=== PATIENT | female | born 1980 | race Caucasian/White ===

== ENCOUNTER 2016-12-24 09:02 | Emergency (ER) | payer OTHER ==
--- NOTE | 2016-12-24 09:29 | ED ---
Back Pain - HPI Summary HPI Summary: Patient arrives to ED with CC of left sided mid to lower back pain which has worsened since this AM after a coughing fit. States she has been experiencing chills and sweats for the past 2 days and endorses tachycardia and diaphoresis currently. Denies urinary symptoms, however previous UTI's have presented as full body aches and tenderness with no urinary symptoms present. No PMHx of kidney stones. She also endorses an acute cough which has been present for 7 days with sputum production described as green. After a coughing fit this am, she feels she may have pulled something in her lower back. Denies bladder or bowel dysfunction. Denies numbness or tingling. - History of Current Complaint Chief Complaint: EDBackInjuryPain Stated Complaint: LOWER BACK PAIN Time Seen by Provider: 12/24/16 09:09 Hx Obtained From: Patient Hx Last Menstrual Period: 08/10/14 Onset/Duration: Sudden Onset - from this AM, but back pain has been present for over 1 week Onset/Duration: Started Hours Ago Timing: Constant Back Pain Location: Is Discrete @ - left L2-L3 radiating to the groin Severity Initially: Moderate Severity Currently: Severe Pain Intensity: 10 Pain Scale Used: 0-10 Numeric Character: Sharp, Aching Aggravating Symptom(s): Movement, Lifting Alleviating Symptom(s): Position Associated Signs And Symptoms: Positive: Negative - Risk Factors AAA Risk Factors: Negative TAD Risk Factors: Negative Cauda Equina Risk Factors: Negative Epidural Abscess Risk Factors: Negative - Allergies/Home Medications Allergies/Adverse Reactions: Allergies Allergy/AdvReac Type Severity Reaction Status Date / Time Aspirin Allergy Severe fluid Verified 12/24/16 09:20 retention Naproxen Allergy Severe Swelling Verified 12/24/16 09:20 NSAIDs Allergy Severe Swelling Verified 12/24/16 09:20 PMH/Surg Hx/FS Hx/Imm Hx Previously Healthy: Yes Endocrine/Hematology History: Denies: Hx Diabetes, Hx Thyroid Disease Cardiovascular History: Denies: Hx Hypercholesterolemia, Hx Hypertension, Hx Pacemaker/ICD, Hx Peripheral Vascular Disease Respiratory History: Denies: Hx Asthma, Hx Chronic Obstructive Pulmonary Disease (COPD) GI History: Denies: Hx Ulcer Musculoskeletal History: Denies: Hx Arthritis, Hx Osteoporosis Sensory History: Denies: Hx Cataracts, Hx Contacts or Glasses, Hx Glaucoma, Hx Hearing Aid Opthamlomology History: Denies: Hx Cataracts, Hx Contacts or Glasses, Hx Glaucoma Neurological History: Reports: Other Neuro Impairments/Disorders - hx bleed 3 wks ago Denies: Hx Headaches, Hx Seizures, Hx Transient Ischemic Attacks (TIA) Psychiatric History: Reports: Hx Anxiety - zoloft, Other Psychiatric Issues/ Disorders - PTSD Denies: Hx Depression, Hx Panic Disorder - Surgical History Surgery Procedure, Year, and Place: c-sections Infectious Disease History: No Infectious Disease History: Denies: Hx Clostridium Difficile, Hx Hepatitis, Hx Human Immunodeficiency Virus (HIV), Hx of Known/Suspected MRSA, Hx Shingles, Hx Tuberculosis, Hx Known/ Suspected VRE, Hx Known/Suspected VRSA, History Other Infectious Disease, Traveled Outside the [place] in Last 30 Days - Social History Occupation: Employed Full-time Lives: With Family Alcohol Use: None Hx Substance Use: No Substance Use Type: Reports: None Hx Tobacco Use: No Smoking Status (MU): Former Smoker Type: Cigarettes Have You Smoked in the Last Year: No Review of Systems Positive: Skin Diaphoresis Eyes: Negative ENT: Negative Cardiovascular: Negative Positive: Cough, Other - with sputum production Gastrointestinal: Negative Positive: no symptoms reported, see HPI Positive: Myalgia - left lower back pain Skin: Negative Neurological: Negative Psychological: Normal All Other Systems Reviewed And Are Negative: Yes Physical Exam Triage Information Reviewed: Yes Vital Signs On Initial Exam: Initial Vitals Temp Pulse Resp BP Pulse Ox 97.2 F 122 16 109/85 97 12/24/16 09:08 12/24/16 09:08 12/24/16 09:08 12/24/16 09:08 12/24/16 09:08 Vital Signs Reviewed: Yes Appearance: Positive: Well-Appearing, Well-Nourished, Pain Distress Skin: Positive: Warm, Skin Color Reflects Adequate Perfusion Head/Face: Positive: Normal Head/Face Inspection Eyes: Positive: Normal, EOMI, Conjunctiva Clear Neck: Positive: Supple, Nontender Respiratory/Lung Sounds: Positive: Breath Sounds Present Cardiovascular: Positive: Normal Musculoskeletal: Positive: Limited @ - twisting and flexion and extension limited d/t pain, Pain @ - left mid to lower back Neurological: Positive: Normal, Sensory/Motor Intact, Speech Normal Psychiatric: Positive: Normal - [place] Coma Scale Coma Scale Total: 15 Diagnostics - Vital Signs Vital Signs Temp Pulse Resp BP Pulse Ox 12/24/16 09:08 97.2 F 122 16 109/85 97 - Laboratory Lab Statement: Any lab studies that have been ordered have been reviewed, and results considered in the medical decision making process. Re-Evaluation - Re-Evaluation First Eval Change: Unchanged - Patient has not improved since pain medicine and flexeril given. Second Eval Change: Improved - Patient improved since 2nd pain medicine given. Back Pain Course/Dx - Course Course Of Treatment: Patient with 7 days of cough and congestion and left sided back pain. Xray shows multifocal PNA, lumbarsacral spine xray showed no acute changes. Will send home with Zithromax, flexeril, short course of pain medicine and fluconazole for history of yeast infections while on abs. However , provider encouraged probiotics on opposite schedule of antbioitcs. Patient agrees with plan and is discharged with note to be taken out of work for 2 days. - Diagnoses Differential Diagnosis/HQI/PQRI: Positive: Strain, Sprain Provider Diagnoses: Pneumonia, Back strain Discharge - Discharge Plan Condition: Stable Disposition: HOME Prescriptions: Azithromycin TAB* [Zithromax TAB (Z-HENRY) 250 mg #6 tabs] 2 tab PO .TODAY, THEN 1 DAILY #1 henry Cyclobenzaprine TAB* [Flexeril TAB*] 10 mg PO BID PRN #10 tab MDD 2 PRN Reason: Pain Cyclobenzaprine TAB* [Flexeril TAB*] 10 mg PO BID PRN #10 tab MDD 2 PRN Reason: Pain Fluconazole 100 MG TAB* [Diflucan 100 MG TAB*] 150 mg PO DAILY #1 tab Ondansetron ODT TAB* [Zofran Odt TAB*] 4 mg PO Q6H PRN #15 tab.odt PRN Reason: Nausea oxyCODONE/Acetamin 5/325 MG* [Percocet 5/325 TAB*] 1 tab PO Q4H PRN #10 tab MDD 6 PRN Reason: Pain oxyCODONE/Acetamin 5/325 MG* [Percocet 5/325 TAB*] 1 tab PO Q4H PRN #10 tab MDD 6 PRN Reason: Pain Patient Education Materials: Pneumonia (ED) Forms: *Work Release Referrals: Luisa Lieberman NP [Primary Care Provider] - Additional Instructions: Follow up with PCP. Take Zithromax until gone. Humidifier in the home. Honey, lemon, hot tea will help break up mucous. Heat packs to the area and rest. Oxycodone for pain. Do not drive on this medication Also, take flexiril for muscle spasms and pain management until resolved.
[2016-12-24] MEDS ORDERED: Cyclobenzaprine TAB* 10 MG PO ONE (09:43)
[2016-12-24] MEDS ORDERED: Acetaminophen TAB* 325 MG PO ONE (09:43)
[2016-12-24 10:35] LABS: Urine Bacteria Absent (Absent); Urine Bilirubin Negative (Negative); Urine Glucose Negative (Negative); Urine Nitrite Negative (Negative)
[2016-12-24] MEDS ORDERED: oxyCODONE/Acetamin 5/325 MG* TAB PO ONE (10:36)
--- NOTE | 2016-12-24 11:02 | RAD ---
INDICATION: Upper respiratory infection symptoms x7 days including chills and fatigue COMPARISON: Most recent comparison chest x-ray is dated May 20, 2012 TECHNIQUE: PA and lateral views of the chest were obtained. FINDINGS: The heart and mediastinum are normal in size and contour. There is multifocal patchy density overlying the bilateral lower lungs. On the right focal density of securing is part of the right heart border and appears to be localized to the right middle lobe on the lateral view. Density at the left lung appears to be located within the left lower lobe. Visualized bones are normal for the patient's age. There is no radiographic evidence of free air beneath the diaphragm IMPRESSION: CHEST X-RAY FINDINGS ARE MOST CONSISTENT WITH MULTIFOCAL PNEUMONIA. FOLLOW-UP CHEST X-RAY AFTER AN APPROPRIATE COURSE OF THERAPY IS RECOMMENDED TO ASCERTAIN RESOLUTION.
[2016-12-24 11:08] VITALS: BP 110/80
--- NOTE | 2016-12-24 11:30 | RAD ---
INDICATION: Low back pain COMPARISON: Similar radiograph dated April 06, 2012 TECHNIQUE: 3 views of the lumbar spine were obtained. FINDINGS: In the AP view there is very slight dextroconvex curvature of the lower thoracic and upper lumbar spine. Otherwise the vertebra are in normal alignment. No fracture is seen. Disc spaces appear maintained. . IMPRESSION: No evidence of acute fracture or subluxation.
== END 2016-12-24 12:42 | disposition home or self-care (01) ==
LOC: ED 09:02
DX: J18.9 Pneumonia, unspecified organism (principal); R61 Generalized hyperhidrosis; S29.012A Strain of muscle and tendon of back wall of thorax, initial encounter; M54.5 Low back pain; Z87.891 Personal history of nicotine dependence
CPT/HCPCS: 71020; 72100; 81003; 81015; 99282; A9270-GY

== ENCOUNTER 2017-03-15 06:15 | Inpatient (IN) | payer OTHER ==
--- NOTE | 2017-02-27 21:14 | HP ---
PREOPERATIVE HISTORY AND PHYSICAL: DATE OF ADMISSION: This patient is scheduled for AA admission by Dr. Mccormick on 03/15/17. DATE OF PREOPERATIVE HISTORY AND PHYSICAL: 02/27/17. ATTENDING SURGEON: Dr. Papo Mccormick (dictated by Sun Leal NP) CHIEF COMPLAINT: Morbid obesity. HISTORY OF PRESENT ILLNESS: The patient is a 36-year-old morbidly obese female , who weighs 253 pounds for body mass index of 39.6. She has obesity-related comorbidities of mild sleep apnea, GERD, and chronic joint pain. She completed medically supervised weight loss at [facility] and has completed all of the necessary preoperative diagnostic testing and evaluations and has been deemed an appropriate candidate by Dr. Mccormick to proceed with laparoscopic sleeve gastrectomy. Dr. Mccormick described the nature of the surgical procedure, the expected results of the surgery, the relevant risks, benefits, and alternatives, and today I reviewed the typical hospitalization and postoperative care and recovery. The patient understands the need for compliance with the stages of the postoperative diet, vitamin and mineral supplementation, exercise, and followup visits. The patient has had a chance to ask questions and stated that she understands the information and is satisfied with the answers given to her questions. She will sign surgical consent on the day of surgery. PAST MEDICAL HISTORY: Mild obstructive sleep apnea, not requiring CPAP at this time; GERD; chronic joint pain. PAST SURGICAL HISTORY: section x3 and D and C many years ago. OB HISTORY: 5, para 3, miscarriage 1, 1. She is up-to-date with pelvic and Pap smear; last menstrual period July 2015 and she has a Mirena. MEDICATIONS: 1. Duloxetine 20 mg p.o. daily in the evening. 2. Alprazolam 0.25 mg p.r.n. anxiety. ALLERGIES: ASPIRIN and ALL NSAIDs cause swelling. FAMILY HISTORY: Father had a myocardial infarction at age 50. Mother has a history of epilepsy. No known anesthesia complications, bleeding tendencies, or clotting disorders in the family. 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 REVIEW OF SYSTEMS: She was in the emergency room in December 2016 at [facility] [employer] with back pain and at that time she was diagnosed with pneumonia and treated. She denies any current constitutional symptoms or any other recent hospitalizations. She denies any chest pain, palpitations. She denies any history of deep vein thrombosis or pulmonary embolism. She denies any dyspnea with exertion or chronic cough. She denies any previous anesthesia complications. Preoperatively, she underwent upper GI series, which was within normal limits. No reflux noted. She also underwent abdominal ultrasound, which revealed a fatty liver, but no cholelithiasis. She denies any bleeding tendencies and has never received a blood transfusion. She denies any genitourinary conditions or complaints. She has chronic joint pain. She denies any neurologic conditions or complaints. PHYSICAL EXAMINATION GENERAL SURVEY: The patient is a morbidly obese, 36-year-old female, in no acute distress. VITAL SIGNS: Height 67 inches, weight 253 pounds, body mass index 39.6. Blood pressure 118/82, pulse 76 and regular, respiratory rate 16, temperature 98.3 tympanic. HEENT: Benign. NECK: Supple. No cervical lymphadenopathy. No thyromegaly. BACK: No CVA tenderness. LUNGS: Breath sounds bilaterally clear and equal. HEART: Regular rate and rhythm. No murmurs or rubs appreciated. ABDOMEN: Obese, active bowel sounds. Soft, nontender throughout. No obvious masses, organomegaly, or evidence of umbilical hernia. Well-healed Pfannenstiel scar. No incisional hernia. PELVIC AND RECTAL: Exams deferred. EXTREMITIES: Warm without skin ulcerations or edema. NEUROLOGIC: Alert and oriented x3. Steady gait. SKIN: Warm, dry, intact. IMPRESSION: Clinically severe obesity. PLAN: AA admission to Dr. Mccormick's service on 03/15/17, for laparoscopic sleeve gastrectomy. SUN LEAL NP CC: Dr. Mccormick, [facility]; Dr. Simon Beltrán* [id number]/[facility] #: [id number] MTDD
[~2017-03-15 06:15] MED LIST: Buffered Lidocaine 1% SYRIN* 3 ML/SYR SYRINGE INTRADERM ONE; Clindamycin 900 MG IVPREMIX(* 900 MG/50 ML SDV IV ONE; ceFAZolin 1 GM in Dextrose (*) 1 GM/50 ML BAG IVPB ONE; ceFAZolin 2 GM PREMIX(*) 2 GM/50 ML BAG IVPB ONE
[2017-03-15 06:59] LABS: Manual Entry Verification ROB0080; UR Preg Internal Control QC Line Present
[2017-03-15] MEDS ORDERED: Bupivacaine 0.25% EPI 200,000* 30 ML SDV ONE (07:06)
[2017-03-15] MEDS ORDERED: Heparin VIAL(*) 5000 UNITS/ML VIAL (FIVE THOUSAND) ONE (07:38)
[2017-03-15] MEDS ORDERED: fentaNYL* 50 MCG/ML 5 ML VIAL (250 MCG VIAL) ONE (07:47)
[2017-03-15] MEDS ORDERED: Midazolam* 1 MG/ML 2 ML VIAL (2 MG) ONE ×2 (07:47→09:13)
[2017-03-15] MEDS ORDERED: Cisatracurium* 2 MG/ML MDV 5 ML ONE (08:09)
[2017-03-15] MEDS ORDERED: Propofol* 10 MG/ML 20 ML BTL IV PUSH ONE ×2 (08:09→10:15)
[2017-03-15] MEDS ORDERED: Succinylcholine* 20 MG/ML 10 ML VIAL ONE (08:09)
[2017-03-15] MEDS ORDERED: Lidocaine 2% PF * 5 ML VIAL ONE (08:09)
[2017-03-15] MEDS ORDERED: Dexamethasone IV* 4 MG/ML 1 ML (4 MG) ONE ×2 (08:09→10:15)
[2017-03-15] MEDS ORDERED: Ondansetron INJ* 2 MG/ML VIAL ONE (08:09)
[2017-03-15] MEDS ORDERED: HYDROmorphone* 1 MG/ML 1 ML SYR IV PRN (08:39)
[2017-03-15] MEDS ORDERED: Scopolamine 1.5 mg* PATCH TRANSDERM PRN (08:39)
[2017-03-15] MEDS ORDERED: Phenylephrine IV* 40 MCG/ML 10 ML SYRINGE ONE (08:45)
--- NOTE | 2017-03-15 09:04 | SURGPN ---
Brief Operative Note - Surgery Procedures: Procedures Pre-OP Diagnoses: Clinically severe obesity Post-op Diagnosis: same Procedure: Laparoscopic sleeve gastrectomy Surgeon: Jace Asst: Rey Anethesia: WILFRID Estrella EBL: minimal IVF: 1000cc LR Specimen: portion of stomach Drains: none
[2017-03-15] MEDS ORDERED: diPHENhydraMINE IV* 50 MG/ML 1 ml VIAL (BENADRYL) SLOW PUSH PRN (09:08)
[2017-03-15] MEDS ORDERED: Ketorolac INJ* 30 MG/ML 1 ML VIAL IV PRN (09:08)
[2017-03-15] MEDS ORDERED: Acetaminophen ADULT LIQ* 650 MG/20.3 ML UDC PO PRN (09:08)
[2017-03-15] MEDS ORDERED: Metoclopramide IV* 5 MG/ML 2 ML VIAL ONE (10:02)
[2017-03-15] MEDS ORDERED: Scopolamine 1.5 mg* PATCH ONE (10:02)
[2017-03-15] MEDS: Metoclopramide IV* 5 MG/ML 2 ML VIAL IV PRN ×2 (10:03→10:11)
[2017-03-15] MEDS ORDERED: fentaNYL* 50 MCG/ML 2 ML VIAL (100 MCG VIAL) ONE (10:03)
[2017-03-15] MEDS: fentaNYL* 50 MCG/ML 2 ML VIAL (100 MCG VIAL) IV PRN ×4 (10:17→10:53)
[2017-03-15] MEDS ORDERED: HYDROmorphone* 1 MG/ML 1 ML SYR ONE (10:54)
--- NOTE | 2017-03-15 11:29 | OP ---
DATE OF OPERATION: 03/15/17 - ROOM #350 DATE OF : 82 SURGEON: Papo Mccormick MD AIRCRAFT AVION[employer] TECHNICIAN: Dr. Le ANESTHESIOLOGIST: Dr. Estrella ANESTHESIA: General. PRE-OP DIAGNOSES: 1. Clinically severe obesity. 2. Obstructive sleep apnea. 3. Gastroesophageal reflux disease. 4. Joint pain. POST-OP DIAGNOSES: 1. Clinically severe obesity. 2. Obstructive sleep apnea. 3. Gastroesophageal reflux disease. 4. Joint pain. OPERATIVE PROCEDURE: Laparoscopic sleeve gastrectomy. BLOOD LOSS: Minimal. FLUIDS: 1000 cc of crystalloid fluid given. SPECIMEN: Portion of stomach. DRAINS: None. COUNTS: Lap pad count and instrument count correct at the end of the procedure. DESCRIPTION OF PROCEDURE: The patient was identified in the preoperative area, marked and case discussed with her and her family, going over the risks, benefits and alternatives of the sleeve gastrectomy and the patient signed consent for the planned procedure. The patient was taken to the operating room , placed on the operating table in supine position. Preoperative antibiotics were given. Sequential devices were placed on bilateral lower extremities. General anesthesia was induced. The patient's abdomen was prepped and draped in standard surgical fashion. A time-out was performed. Folds of the umbilicus were elevated anteriorly and a Veress needle was inserted into the abdominal cavity, which was then allowed to insufflate to a pressure of 15 mmHg. The patient tolerated the insufflation well. Pendroy between the xiphoid and umbilicus just left of midline, a 12-mm trocar was inserted. Laparoscope was inserted through this. There was no evidence of injury from the trocar insertion or from Veress needle. The Veress needle was then removed and additional trocars were then placed in the following positions ; a 5 mm and a 5 mm in the left upper quadrant and a 12 mm in the right upper quadrant. The table was placed in a reverse Trendelenburg. A Woody retractor was inserted through the subxiphoid port and the liver was retracted anteriorly into the right, exposing the gastroesophageal fat pad. The stomach was decompressed and the OG tube was then removed. Fat pad was retracted towards the right lower quadrant and blunt dissection was carried out to expose the left crura. Then, a retrogastric window was made along the greater curvature, approximately 6 mm from the pylorus. The vasculature of the greater curvature was then taken with a LigaSure device, brought up to the angle of His. Posterior attachments were similarly taken until the stomach could be completely rotated on its axis. Hemostasis was excellent. Next, a sleeve stomach was created over a 40-Danish bougie, 16-mm purple JACOB stapling device with reinforcement strips were placed, starting at the antrum and along the greater curvature and extending it toward the lesser curvature and creating the sleeve with additional loads of the stapling, staying tight to the bougie and preventing any twisting of the staple line. Before the last stapler was fired, the fat pad was both sharply and bluntly dissected off of the anterior stomach to give better exposure. The stomach was fully transected and the bougie was removed. Hemostasis was excellent. Next, the 12-mm trocar was removed from the right upper quadrant and an Endobag placed. Stomach was placed into this and then removed from the right upper quadrant port site with ease. The Woody retractor was removed. The abdomen was allowed to collapse. Trocars were removed under direct vision and all 5 skin incisions were reapproximated with skin nithin, followed by sterile dressing. The patient tolerated the procedure well and was transferred to the PACU. CC: Dr. Simon Beltrán; [facility]* [id number]/[facility] #: [id number] GIOVANNA
[2017-03-15] MEDS ORDERED: PROCHLORPERAZINE INJ 5 MG/ML 2 ML VIAL ONE (12:05)
[2017-03-15] MEDS: Heparin VIAL(*) 5000 UNITS/ML VIAL (FIVE THOUSAND) SUBCUT SCH ×2 (14:44→22:10)
[2017-03-15] MEDS: HYDROmorphone* 1 MG/ML 1 ML SYR IV PRN ×2 (15:02→21:05)
[2017-03-15] MEDS: Ondansetron INJ* 2 MG/ML VIAL IV PRN (18:50)
[2017-03-15] MEDS ORDERED: Famotidine IV* 10 MG/ML 2 ML (20 mg) ONE (20:59)
[2017-03-16] MEDS: HYDROmorphone* 1 MG/ML 1 ML SYR IV PRN ×2 (01:40→07:43)
[2017-03-16] MEDS: Ondansetron INJ* 2 MG/ML VIAL IV PRN ×3 (01:41→18:28)
[2017-03-16] MEDS: Heparin VIAL(*) 5000 UNITS/ML VIAL (FIVE THOUSAND) SUBCUT SCH ×3 (06:04→21:28)
--- NOTE | 2017-03-16 08:47 | PN ---
Progress Note - Progress Note SOAP: Subjective: [pt seen and examined. Doing well. some upper abdo pain Objective: af vss uo good lungs clear abdo: soft/NT dressing cdi no calf tenderness Assessment: POD1 sleeve gastrectomy Plan: UGI, clears d/c home
[2017-03-16] MEDS: D5W 1/2 NS KCl 20 Meq 1000 ML* 1,000 ML IV SCH ×2 (09:30→17:35)
--- NOTE | 2017-03-16 09:43 | RAD ---
INDICATION: 1 day postop gastric sleeve bariatric surgery. COMPARISON: November 16, 2016 upper GI series. TECHNIQUE: 0.2 minutes fluoroscopy. The patient swallowed Gastrografin under fluoroscopic observation. FINDINGS: Contrast extends through the region of the gastric sleeve without delay. Contrast propagates through the duodenum without delay. No evidence for enteric leak. Laparoscopy port cutaneous nithin noted. IMPRESSION: Unremarkable postoperative appearance following gastric sleeve bariatric surgery. CPT II Codes: 6045F
[2017-03-16] MEDS ORDERED: D5W 1/2 NS KCl 20 Meq 1000 ML* 1,000 ML IV SCH (10:00)
[2017-03-16] MEDS: HYDROcodone/ACET. 7.5/325 LIQ* 15 ML UDC PO PRN ×3 (12:45→23:35)
[2017-03-16] MEDS ORDERED: Metoclopramide IV* 5 MG/ML 2 ML VIAL IV PRN (14:42)
[2017-03-17] MEDS: D5W 1/2 NS KCl 20 Meq 1000 ML* 1,000 ML IV SCH (02:43)
[2017-03-17] MEDS: Heparin VIAL(*) 5000 UNITS/ML VIAL (FIVE THOUSAND) SUBCUT SCH (06:06)
[2017-03-17] MEDS: Ondansetron INJ* 2 MG/ML VIAL IV PRN (06:33)
[2017-03-17] MEDS ORDERED: Famotidine IV* 10 MG/ML 2 ML (20 mg) ONE (10:12)
--- NOTE | 2017-03-17 10:29 | PN ---
Progress Note - Progress Note Note: Surgery Progress: S: POD #2. Much better this a.m. No Nausea at present. Carlos A ruiz. Also seen and examined by Dr. Mccormick. O: Vital Signs - 8 hr 03/17/17 03/17/17 04:24 08:02 Temperature 98.1 F 98.1 F Pulse Rate 79 70 Respiratory 16 16 Rate Blood Pressure 127/68 125/72 (mmHg) O2 Sat by Pulse 98 97 Oximetry Intake and Output Last 24 Hours 03/15/17 03/16/17 03/17/17 03/18/17 06:59 06:59 06:59 06:59 Intake Total 3775 4466 Output Total 2950 6650 Balance 825 -2184 Weight 239 lb Intake: IV Fluids 3617 3564 ANCEF 3GMS 100 CLINDAMYCIN 900MG 50 D5W 1/2 NS 20 meq KCL 1469 LR 3467 1930 ZOFRAN 55 pepcid 110 IVPB 158 102 LR 158 pepcid 102 Oral 0 800 Output: Urine 2950 6650 Other: Estimated Void Large Estimated Blood Loss MIN Comment Examined by Dr. Mccormick A/P: s/p lap sleeve gastrectomy; ok for d/c (on po omeprazole); instructions reviewed; office f/u 03/23/17.
[2017-03-17 12:40] VITALS: BP 125/77
--- NOTE | 2017-03-17 13:03 | DS ---
DISCHARGE SUMMARY: DATE OF ADMISSION: 03/15/17 DATE OF DISCHARGE: 03/17/17 ATTENDING SURGEON: Papo Mccormick MD (DICTATED BY VARGHESE COSTA) HOSPITAL COURSE: Please refer to admission history and physical for admission details. The patient was taken to the operating room on 03/17/17, at which time , she underwent a laparoscopic sleeve gastrectomy with Dr. Mccormick. The surgery was otherwise uneventful. The patient did have some difficulties with nausea and therefore fluid intake in the first 24 hours. As of the morning of discharge, she is tolerating bariatric clear liquids well and was deemed appropriate for discharge. Pain was well controlled with liquid Tylenol and hydrocodone/APAP elixir. PHYSICAL EXAMINATION: As of the morning of discharge, temperature 98.1, blood pressure 125/72, pulse 70, respirations 16, and room air saturation 97%. The patient was examined by Dr. Mccormick, who removed her dressings. Incisions are clean and dry. No evidence of wound infection. IMPRESSION: Status post laparoscopic sleeve gastrectomy, doing well. PLAN: Home today. Dr. Mccormick would like her to continue on omeprazole 20 mg once daily and a prescription was electronically sent to [facility]. She already has a prescription for hydrocodone elixir. She will resume her usual medications per her primary. Followup will be in our office on 03/23/[address] Mccormick. VARGHESE COSTA CC: Luisa Michelle NP, [facility] * [id number]/[facility] #: [id number] [facility] HOSPITALThang
== END 2017-03-17 13:25 | disposition home or self-care (01) | DRG 403 ==
LOC: AA 06:15 → SSU 09:08
PROVIDERS: ADMIT Surgery; ATTEND Surgery
PROC: 0DB64Z3 Excision of Stomach, Percutaneous Endoscopic Approach, Vertical (ICD-10-PCS; principal; 2017-03-15 07:45)
DX: E66.01 Morbid (severe) obesity due to excess calories (principal); G47.33 Obstructive sleep apnea (adult) (pediatric); Z68.39 Body mass index [BMI] 39.0-39.9, adult; K21.9 Gastro-esophageal reflux disease without esophagitis; M25.50 Pain in unspecified joint; Z79.899 Other long term (current) drug therapy; Z88.6 Allergy status to analgesic agent; Z82.49 Family history of ischemic heart disease and other diseases of the circulatory system; Z87.891 Personal history of nicotine dependence
CPT/HCPCS: 74246; 81025; 88307; 94760; A9270-GY; J0330; J0690; J0780; J1100; J1170; J1644; J2250; J2405; J2704; J3010

== ENCOUNTER 2017-04-16 09:27 | Emergency (ER) | payer OTHER ==
[2017-04-16] MEDS: NS 0.9% 1000 ML* 2,000 ML IV ONE (10:02)
[2017-04-16 10:17] LABS: Hematocrit 41 % (35-47); Hemoglobin 13.8 g/dl (12.0-16.0); Mean Corpuscular HGB Conc 34 g/dl (31-36); Mean Corpuscular Hemoglobin 29 pg (27-31); Mean Corpuscular Volume 86 fL (80-97); Mean Platelet Volume 9 um3 (7.4-10.4); Red Blood Count 4.71 10^6/ul (4.0-5.4); Red Cell Distribution Width 14 % (10.5-15); White Blood Count 10.4 10^3/ul (3.5-10.8)
[2017-04-16 10:30] LABS: Albumin 3.9 g/dL (3.2-5.2); BUN/Creatinine Ratio 10.8 (8-20); C Reactive Protein 18.17 mg/L (< 5.00); Calcium 9.4 mg/dL (8.6-10.3); EGFR African American 114.9 (>60); EGFR Non-African American 89.3 (>60); Globulin 2.9 g/dL (2-4); Potassium 3.4 mmol/L (3.5-5.0); Total Bilirubin 0.6 mg/dL (0.2-1.0); Total Protein 6.8 g/dL (6.4-8.9)
[2017-04-16 11:11] LABS: Urine Bilirubin Negative (Negative); Urine Glucose Negative (Negative); Urine Nitrite Negative (Negative)
--- NOTE | 2017-04-16 11:15 | RAD ---
Indication: Abdominal pain. Real-time sonography of the right upper quadrant was performed. The liver is normal in size. There are no focal lesions or intrahepatic duct dilatation noted. The gallbladder demonstrates no gallstones, pericholecystic fluid or wall thickening. The common duct is not well demonstrated. Right kidney measures 14.3 x 6.4 x 5.4 cm with no hydronephrosis. The pancreas head, neck and proximal body demonstrates no mass or pancreatic ductal dilatation. IMPRESSION: No evidence of cholelithiasis or biliary duct dilatation is identified. Common duct is not well demonstrated.
[2017-04-16] MEDS ORDERED: Iohexol 300* (CONTRAST) 10 ML SDV IV ONE (12:20)
--- NOTE | 2017-04-16 13:55 | RAD ---
Indication: Upper abdominal pain. Status post sleeve gastrectomy. Contrast: Administered 128.0 ml of OMNIPAQUE 300 mgi/ml CT of the abdomen and pelvis was performed after oral and IV contrast administration. Some airspace disease is noted in the left lateral lower lobe. No pleural fluid is identified. The heart demonstrates no pericardial effusion. Liver is normal in size. No focal lesions or intrahepatic duct dilatation is noted. The gallbladder demonstrates no calcified gallstones. No pericholecystic fluid or wall thickening is identified. The pancreas demonstrates no mass or pancreatic duct dilatation. The spleen is normal in size. No adrenal lesions are noted. The kidneys demonstrate symmetric nephrograms without focal lesions. No retroperitoneal lymphadenopathy is noted. No dilated loops of bowel are noted. Patient status post sleeve gastrectomy. CT of the pelvis demonstrates no retroperitoneal or pelvic lymphadenopathy. No hernias are noted. The urinary bladder is otherwise unremarkable. IMPRESSION: No abnormal masses or fluid collections are noted. Postoperative changes of the stomach is noted. Airspace disease in left lower lobe laterally is present.
[2017-04-16 13:58] VITALS: BP 113/42
--- NOTE | 2017-05-12 00:27 | CONS ---
CONSULTATION REPORT: DATE OF CONSULT: 04/16/17 - EMERGENCY DEPT HISTORY OF PRESENT ILLNESS: I was contacted by the emergency room to evaluate Daija Wharton on 04/16/17 with complaints of abdominal pain. The patient is known to me having been 1- month status post laparoscopic sleeve gastrectomy. The patient's postoperative course was mostly uneventful with the exception of possible allergic reaction. The patient had been followed through our offices. 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 She had decreased appetite and denied any fevers or chills. Denied any previous similar symptoms. PAST MEDICAL HISTORY: Reviewed. The patient had lost close to 50 pounds in the course of the first month. MEDICATIONS: Medication list reviewed. PHYSICAL EXAM: On physical exam, 5 feet 7 inches, 211 pounds. Afebrile. Vital signs are stable. Alert and oriented x3, in no apparent distress. Head, Eyes, Ears, Nose, and Throat: Normocephalic, atraumatic. Sclerae anicteric. Mucous membranes are moist. Lungs: Clear. Abdomen: Soft, nondistended, mild tenderness on deep palpation without rebound. Well-healed surgical incisions. No hernias or masses noted. Rectal exam not performed. Extremities within normal limits. DIAGNOSTIC STUDIES/LAB DATA: Labs reviewed showed normal chemistry panel with mildly elevated CRP. Normal lipase. The patient underwent an ultrasound of the gallbladder with a concern for gallstones, there were none. IMPRESSION AND PLAN: We talked about the possibility of discharging her from the emergency room at that time with planned followup as an outpatient since her abdominal exam was benign. However, in our discussion, we determined that we would go forward with a CT scan of the abdomen and pelvis, this was performed and these images as well as the reports were reviewed. It showed no free air. No free fluid. The sleeve stomach appeared intact and I discussed this with her. We then decided to discharge her from the emergency room. She was not seen by the emergency room physicians, but they knew of her presence and I discussed with them. We made plans to see Ms. Wharton early the following week in my office and I gave her my cell phone number to contact me if there should be any concerns. [id number]/[facility] #: [id number] GIOVANNA
== END 2017-04-16 14:00 | disposition home or self-care (01) ==
LOC: ED 09:27
DX: R10.9 Unspecified abdominal pain (principal); Z90.3 Acquired absence of stomach [part of]
CPT/HCPCS: 36415; 74177; 76705; 80053; 81003; 82150; 83605; 83690; 85025; 86140; 99282; Q9967

== ENCOUNTER 2018-03-25 12:52 | Observation (INO) | payer OTHER ==
[2018-03-25] MEDS ORDERED: HYDROmorphone INJ* 1 MG/ML CARPUJECT SYRINGE IV ONE ×2 (13:19→14:19)
[2018-03-25] MEDS ORDERED: NS 0.9% 1000 ML* 2,000 ML IV ONE (13:19)
[2018-03-25] MEDS ORDERED: Ondansetron ODT TAB* 4 MG PO ONE ×2 (13:19→15:45)
[2018-03-25 13:47] LABS: ABS Basophils 0.1 10^3/ul (0-0.2); ABS Eosinophils 0 10^3/ul (0-0.6); ABS Lymphocytes 2.5 10^3/ul (1.0-4.8); ABS Monocytes 0.9 10^3/ul (0-0.8); ABS Neutrophils 10.7 10^3/ul (1.5-7.7); ABS Nucleated RBC 0 10^3/ul; Eosinophil % 0.1 % (0-6); Hematocrit 40 % (35-47); Hemoglobin 13.8 g/dl (12.0-16.0); Mean Corpuscular HGB Conc 34 g/dl (31-36); Mean Corpuscular Hemoglobin 31 pg (27-31); Mean Corpuscular Volume 90 fL (80-97); Mean Platelet Volume 7.9 um3 (7.4-10.4); Nucleated Red Blood Cells % 0; Platelet Count 269 10^3/ul (150-450); Red Blood Count 4.46 10^6/ul (4.0-5.4); Red Cell Distribution Width 14 % (10.5-15); White Blood Count 14.1 10^3/ul (3.5-10.8)
--- NOTE | 2018-03-25 13:47 | RAD ---
Indication: Right flank pain. CT of the abdomen and pelvis was performed without oral or IV contrast administration. Coronal and sagittal reconstructed images were obtained. The lung bases demonstrate no pleural fluid, nodules or masses. Heart is of normal size without evidence of pericardial effusion. The liver is normal in size. No focal lesions or intrahepatic duct dilatation is noted. The gallbladder demonstrates no calcified gallstones. No pericholecystic fluid or wall thickening is noted. The spleen is normal in size. The pancreas demonstrates no mass or pancreatic ductal dilatation. The common duct is not dilated. No adrenal lesions are noted. There is right hydronephrosis and hydroureter noted. There is a calculi in the proximal right ureter measuring 4 mm at the level of L4. The possibility of a second calculi in the distal right ureter just above the ureterovesicular junction measuring 1 to 2 mm also be present. The left kidney shows no hydronephrosis. Aorta and inferior vena cava are unremarkable. No dilated loops of bowel are noted. CT of the pelvis demonstrates uterus to be unremarkable. IUD is in place. No adnexal masses are noted. No hernias are noted. IMPRESSION: Right hydronephrosis is noted with calculi in the right ureter measuring 4 mm at the L4 level. There may be an additional distal right ureteral calculi measuring 1 to 2 mm although bowel loops obscure exact delineation of the ureter. The left kidney shows no hydronephrosis.
[2018-03-25] MEDS ORDERED: HYDROmorphone INJ* 2 MG/ML CARPUJECT SYRINGE ONE ×2 (13:52→14:22)
[2018-03-25 14:05] LABS: EGFR Non-African American 73.7 (>60)
[2018-03-25 14:08] LABS: INR 1.17 (0.77-1.02)
[2018-03-25] MEDS ORDERED: Tamsulosin CAP* 0.4 MG PO ONE (15:43)
[2018-03-25 16:01] LABS: Urine Appearance Cloudy; Urine Blood 3+ (Negative); Urine Color Yellow; Urine Ketones 1+ (Negative); Urine Protein 1+(30 mg/dL) (Negative); Urine Specific Gravity 1.013 (1.010-1.030); Urine Urobilinogen Negative (Negative)
[2018-03-25] MEDS ORDERED: HYDROmorphone INJ* 2 MG/ML CARPUJECT SYRINGE IV SLOW PU ONE (18:31)
[2018-03-25] MEDS ORDERED: HYDROmorphone INJ* 2 MG/ML CARPUJECT SYRINGE IV SLOW PU PRN (18:32)
[2018-03-25] MEDS ORDERED: diPHENhydraMINE PO* 50 MG PO ONE (18:33)
[2018-03-25] MEDS ORDERED: ALPRAZolam TAB* 0.25 MG PO PRN (18:33)
[2018-03-25] MEDS ORDERED: Ondansetron ODT TAB* 4 MG SL PRN (18:35)
[2018-03-25] MEDS ORDERED: Ondansetron INJ* 2 MG/ML VIAL IV PRN (18:35)
[2018-03-25] MEDS: NS 0.9% 1000 ML* 1,000 ML IV SCH ×2 (18:49→23:05)
[2018-03-25] MEDS ORDERED: cefTRIAXone(*) 2 GM in NS 0.9% 100 ML* 100 ML IVPB ONE (19:02)
--- NOTE | 2018-03-25 19:05 | ED ---
Santos Santos Stephanie, scribed for Nirmal Cleary MD on 03/25/18 at 1347 . Abdominal Pain/Female - HPI Summary HPI Summary: The pt is a 37 y/o F presenting to the ED with c/o R sided flank pain that began last night. Symptoms include nausea when the pain is severe. The pt denies increased urinary frequency. The pt states she took flexeril at 10:00 today. - History of Current Complaint Chief Complaint: EDFlankPain Stated Complaint: BACK PAIN Time Seen by Provider: 03/25/18 13:19 Hx Obtained From: Patient Hx Last Menstrual Period: 08/10/14 Onset/Duration: Sudden Onset, Lasting Hours - 13, Still Present Timing: Constant Severity Currently: Severe Pain Intensity: 10 Pain Scale Used: 0-10 Numeric Location: Flank - R Radiates: No Aggravating Factor(s): Nothing Alleviating Factor(s): Nothing Associated Signs and Symptoms: Positive: Negative - increased urinary frequency , Nausea Allergies/Adverse Reactions: Allergies Allergy/AdvReac Type Severity Reaction Status Date / Time aspirin Allergy Swelling Verified 03/25/18 12:59 naproxen Allergy Swelling Verified 03/25/18 12:59 NSAIDS (Non-Steroidal Allergy Swelling Verified 03/25/18 12:59 Anti-Inflamma Home Medications: Home Medications ALPRAZolam TAB* [Xanax TAB*] 0.25 mg PO Q6H PRN 03/25/18 [History Confirmed ] Cyclobenzaprine TAB* [Flexeril 10 MG TAB*] 5 mg PO BID PRN 03/25/18 [History Confirmed 03/25/18] Multivitamins/Minerals TAB* [Theragran/minerals TAB*] 1 tab PO DAILY 03/25/18 [ History Confirmed 03/25/18] PMH/Surg Hx/FS Hx/Imm Hx Endocrine/Hematology History: Denies: Hx Anticoagulant Therapy, Hx Diabetes, Hx Thyroid Disease Cardiovascular History: Denies: Hx Hypercholesterolemia, Hx Hypertension, Hx Pacemaker/ICD, Hx Peripheral Vascular Disease Respiratory History: Reports: Hx Sleep Apnea, Other Respiratory Problems/ Disorders - had pneumonia 12/2016 Denies: Hx Asthma, Hx Chronic Obstructive Pulmonary Disease (COPD) GI History: Reports: Hx Irritable Bowel, Other GI Disorders - h/o small bowel enlarged hospital, resolved; bariatric status Denies: Hx Ulcer Musculoskeletal History: Denies: Hx Arthritis, Hx Osteoporosis Sensory History: Denies: Hx Cataracts, Hx Contacts or Glasses, Hx Glaucoma, Hx Hearing Aid Opthamlomology History: Denies: Hx Cataracts, Hx Contacts or Glasses, Hx Glaucoma Neurological History: Reports: Hx Migraine, Other Neuro Impairments/Disorders - hx bleed 3 wks ago Denies: Hx Headaches, Hx Seizures, Hx Transient Ischemic Attacks (TIA) Psychiatric History: Reports: Hx Anxiety - zoloft, Other Psychiatric Issues/ Disorders - PTSD; bariatric status Denies: Hx Depression, Hx Panic Disorder - Surgical History Surgery Procedure, Year, and Place: c-sections ; bariatric surgery 2017 Hx Anesthesia Reactions: No Infectious Disease History: No Infectious Disease History: Denies: Hx Clostridium Difficile, Hx Hepatitis, Hx Human Immunodeficiency Virus (HIV), Hx of Known/Suspected MRSA, Hx Shingles, Hx Tuberculosis, Hx Known/ Suspected VRE, Hx Known/Suspected VRSA, History Other Infectious Disease, Traveled Outside the [place] in Last 30 Days - Family History Known Family History: Negative: Renal Disease - Social History Occupation: Employed Full-time Lives: Alone Alcohol Use: None Hx Substance Use: No Substance Use Type: Reports: None Hx Tobacco Use: Yes - not currently Smoking Status (MU): Former Smoker Type: Cigarettes Have You Smoked in the Last Year: No Review of Systems Negative: Fever Positive: Nausea Positive: flank pain - R side. Negative: frequency - increased Negative: Slurred Speech All Other Systems Reviewed And Are Negative: Yes Physical Exam - Summary Physical Exam Summary: General: well-appearing, moderate/severe pain distress Skin: warm, color reflects adequate perfusion, dry Head: normal Eyes: EOMI, MAR ENT: normal Neck: supple, nontender Respiratory: CTA, breath sounds present Cardiovascular: RRR Abdomen: soft, tender in R flank Bowel: present Musculoskeletal: normal, strength/ROM intact Neurological: sensory/motor intact, A&O x3 Psychological: affect/mood appropriate Triage Information Reviewed: Yes Vital Signs On Initial Exam: Initial Vitals Temp Pulse Resp BP Pulse Ox 98 F 115 22 127/87 100 03/25/18 12:59 03/25/18 12:59 03/25/18 12:59 03/25/18 12:59 03/25/18 12:59 Vital Signs Reviewed: Yes Diagnostics - Vital Signs Vital Signs Temp Pulse Resp BP Pulse Ox 03/25/18 12:59 98 F 115 22 127/87 100 - Laboratory Lab Results: Lab Results 03/25/18 03/25/18 03/25/18 Range/Units 13:40 13:40 13:40 WBC 14.1 H (3.5-10.8) 10^3/ul RBC 4.46 (4.0-5.4) 10^6/ul Hgb 13.8 (12.0-16.0) g/dl Hct 40 (35-47) % MCV 90 (80-97) fL MCH 31 (27-31) pg MCHC 34 (31-36) g/dl RDW 14 (10.5-15) % Plt Count 269 (150-450) 10^3/ul MPV 7.9 (7.4-10.4) um3 Neut % (Auto) 75.3 (38-83) % Lymph % (Auto) 18.0 L (25-47) % Gooding % (Auto) 6.2 (0-7) % Eos % (Auto) 0.1 (0-6) % Baso % (Auto) 0.4 (0-2) % Absolute Neuts (auto) 10.7 H (1.5-7.7) 10^3/ul Absolute Lymphs (auto) 2.5 (1.0-4.8) 10^3/ul Absolute Monos (auto) 0.9 H (0-0.8) 10^3/ul Absolute Eos (auto) 0 (0-0.6) 10^3/ul Absolute Basos (auto) 0.1 (0-0.2) 10^3/ul Absolute Nucleated RBC 0 10^3/ul Nucleated RBC % 0 INR (Anticoag Therapy) 1.17 H (0.77-1.02) APTT 27.9 (26.0-36.3) seconds Sodium 140 (139-145) mmol/L Potassium 3.8 (3.5-5.0) mmol/L Chloride 106 (101-111) mmol/L Carbon Dioxide 26 (22-32) mmol/L Anion Gap 8 (2-11) mmol/L BUN 12 (6-24) mg/dL Creatinine 0.87 (0.51-0.95) mg/dL Est GFR ( Amer) 94.7 (>60) Est GFR (Non-Af Amer) 73.7 (>60) BUN/Creatinine Ratio 13.8 (8-20) Glucose 104 H (70-100) mg/dL Lactic Acid (0.5-2.0) mmol/L Calcium 9.8 (8.6-10.3) mg/dL Total Bilirubin 0.70 (0.2-1.0) mg/dL AST 16 (13-39) U/L ALT 27 (7-52) U/L Alkaline Phosphatase 81 (34-104) U/L C-Reactive Protein < 1.00 (< 5.00) mg/L Total Protein 7.0 (6.4-8.9) g/dL Albumin 4.5 (3.2-5.2) g/dL Globulin 2.5 (2-4) g/dL Albumin/Globulin Ratio 1.8 (1-3) Beta HCG, Quant 0.73 mIU/mL Urine Color Urine Appearance Urine pH (5-9) Ur Specific Newport (1.010-1.030) Urine Protein (Negative) Urine Ketones (Negative) Urine Blood (Negative) Urine Nitrate (Negative) Urine Bilirubin (Negative) Urine Urobilinogen (Negative) Ur Leukocyte Esterase (Negative) Urine WBC (Auto) (Absent) Urine RBC (Auto) (Absent) Ur Squamous Epith Cells (Absent) Urine Bacteria (Absent) Urine Glucose (Negative) 03/25/18 03/25/18 Range/Units 13:40 15:44 WBC (3.5-10.8) 10^3/ul RBC (4.0-5.4) 10^6/ul Hgb (12.0-16.0) g/dl Hct (35-47) % MCV (80-97) fL MCH (27-31) pg MCHC (31-36) g/dl RDW (10.5-15) % Plt Count (150-450) 10^3/ul MPV (7.4-10.4) um3 Neut % (Auto) (38-83) % Lymph % (Auto) (25-47) % Gooding % (Auto) (0-7) % Eos % (Auto) (0-6) % Baso % (Auto) (0-2) % Absolute Neuts (auto) (1.5-7.7) 10^3/ul Absolute Lymphs (auto) (1.0-4.8) 10^3/ul Absolute Monos (auto) (0-0.8) 10^3/ul Absolute Eos (auto) (0-0.6) 10^3/ul Absolute Basos (auto) (0-0.2) 10^3/ul Absolute Nucleated RBC 10^3/ul Nucleated RBC % INR (Anticoag Therapy) (0.77-1.02) APTT (26.0-36.3) seconds Sodium (139-145) mmol/L Potassium (3.5-5.0) mmol/L Chloride (101-111) mmol/L Carbon Dioxide (22-32) mmol/L Anion Gap (2-11) mmol/L BUN (6-24) mg/dL Creatinine (0.51-0.95) mg/dL Est GFR ( Amer) (>60) Est GFR (Non-Af Amer) (>60) BUN/Creatinine Ratio (8-20) Glucose (70-100) mg/dL Lactic Acid 1.6 (0.5-2.0) mmol/L Calcium (8.6-10.3) mg/dL Total Bilirubin (0.2-1.0) mg/dL AST (13-39) U/L ALT (7-52) U/L Alkaline Phosphatase (34-104) U/L C-Reactive Protein (< 5.00) mg/L Total Protein (6.4-8.9) g/dL Albumin (3.2-5.2) g/dL Globulin (2-4) g/dL Albumin/Globulin Ratio (1-3) Beta HCG, Quant mIU/mL Urine Color Yellow Urine Appearance Cloudy Urine pH 6.0 (5-9) Ur Specific Newport 1.013 (1.010-1.030) Urine Protein 1+(30 mg/dl) A (Negative) Urine Ketones 1+ A (Negative) Urine Blood 3+ A (Negative) Urine Nitrate Negative (Negative) Urine Bilirubin Negative (Negative) Urine Urobilinogen Negative (Negative) Ur Leukocyte Esterase Trace A (Negative) Urine WBC (Auto) 1+(6-10/hpf) A (Absent) Urine RBC (Auto) 3+(>10/hpf) A (Absent) Ur Squamous Epith Cells Present A (Absent) Urine Bacteria Absent (Absent) Urine Glucose Negative (Negative) Result Diagrams: 03/25/18 13:40 03/25/18 13:40 Lab Statement: Any lab studies that have been ordered have been reviewed, and results considered in the medical decision making process. - CT Abdomen/Pelvis CT Interpretation: Positive (See Comments) CT Interpretation Completed By: Radiologist - Right hydronephrosis is noted with calculi in the right ureter measuring 4 mm at the L4 level. There may be an additional distal right ureteral calculi measuring 1 to 2 mm although bowel loops obscure exact delineation of the ureter. The left kidney shows no hydronephrosis. ED physician has reviewed this report. Re-Evaluation - Re-Evaluation First Eval Re-Evaluation Time: 15:35 Change: Improved - The pt's pain has improves. After her first dose of dilaudid the pt's pain was an 8 out of 10. Now her pain is a numbing pain. Abdominal Pain Fem Course/Dx - Course Course Of Treatment: DISCUSSED WITH DR MONTGOMERY, UROLOGY. ADMIT HOSPITALIST. - Diagnoses Provider Diagnoses: Kidney stone on right side - Provider Notifications Discussed Care Of Patient With: Lalit Barrientos Time Discussed With Above Provider: 18:38 Instructed by Provider To: Admit As Inpatient Discharge - Sign-Out/Discharge Documenting (check all that apply): Discharge/Admit/Transfer - Discharge Plan Condition: Stable Disposition: [facility]ITTED TO [facility] Referrals: Simon Beltrán MD [Primary Care Provider] - - Billing Disposition and Condition Condition: STABLE Disposition: [facility] The documentation as recorded by the Santos fine Stephanie accurately reflects the service I personally performed and the decisions made by , Nirmal Cleary MD.
[2018-03-25] MEDS ORDERED: Ondansetron ODT TAB* 4 MG ONE (19:11)
[2018-03-25] MEDS ORDERED: Buffered Lidocaine 0.9% SYRIN* 5 ML/SYR SYRINGE INTRADERM ONE (19:58)
--- NOTE | 2018-03-25 20:46 | HP ---
CC: Dr. Beltrán * ADMISSION HISTORY AND PHYSICAL: DATE OF ADMISSION: 03/25/18 PRIMARY CARE PROVIDER: Dr. Beltrán. HEALTHCARE PROXY: Her fiance, Cade Garcia. CODE STATUS: Full. SOURCE OF INFORMATION: History obtained from interview with the patient. RELIABILITY: Good. CHIEF COMPLAINT: Right flank pain. HISTORY OF PRESENT ILLNESS: This is a 37-year-old female, who had been in her usual state of health until the night prior to presentation, started to develop right hip pain that gradually worsened in severity, then moved from her hip down to wrap around to her groin. Later in the morning, it became acutely worse with associated nausea, vomiting in addition to the pain, exacerbated by taking a deep breath. Of note, the pain was in her lower back when she took a deep breath and not in her chest. She has had no chest pain, no diarrhea. The pain has become increasingly worse, so she presented to the emergency room and was noted on a CT abdomen and pelvis to have 4 mm obstructing ureteral stone with associated right hydronephrosis and hydroureter at the proximal right ureter around the level of L4. The patient was treated with multiple doses of Dilaudid with some relief; however, required repeated dosing secondary to repeated pain. She noted pruritus with administration of the Dilaudid, improving nausea with administration of ondansetron. Otherwise, the patient has no fevers, chills, or night sweats. She has noted no dysuria, urinary frequency or urgency. She is quite active, walks regularly, goes to the gym 4 times a week and uses the elliptical for 30 to 45 minutes per session. She has a previous gastric bypass with no problems with bleeding approximately 1 year prior, but did note she had a "reaction" to anesthesia where she had to be reintubated soon after extubation after which she was administrated some medication, which allowed her extubation. Of note, I do not yet see the details surrounding any anesthesia, adverse reaction on 03/15/17 in her operative report. PAST MEDICAL HISTORY: Includes osteoarthritis of her knees, anxiety, gastric bypass in March 2017, 3 times. MEDICATIONS: 1. Xanax 0.25 mg as needed. 2. Multivitamin daily. ALLERGIES: To NSAIDS, which caused swelling. FAMILY HISTORY: Grandmother and great grandfather had nephrolithiasis. Her mother has epilepsy. Father had CAD at the age of 50. SOCIAL HISTORY: Rare alcohol once every several months. Smokes 1 to 2 cigarettes per day for the last 4 to 5 years. She is a [employer] employee. REVIEW OF SYSTEMS: As per HPI. Otherwise, all other systems negative. PHYSICAL EXAMINATION GENERAL: A well-appearing 37-year-old female, rolling in bed in pain, holding her right flank. VITAL SIGNS: 101/61, heart rate 63, respiratory rate is 15, 99% on room air, T- max in the emergency room is 98%. HEENT: Oropharynx is clear. She has moist mucous membranes. Sclerae are anicteric. LUNGS: Clear to auscultation. HEART: She has a regular rate and rhythm without no murmurs, rubs, or gallops. ABDOMEN: Soft, nontender, nondistended. She has minimal tenderness over her spine with some costovertebral angle tenderness to percussion. EXTREMITIES: Warm and well perfused without clubbing, cyanosis, or edema. She has less than 2 seconds cap refill. NEUROLOGIC: Her cranial nerves II through XII are intact. She is alert and oriented x3. She has no apparent anxiety, agitation, or depression. PERTINENT LABORATORY DATA: White blood cell count is 14.1 which is 75% neutrophils, hemoglobin 13.8, platelets 269,000. Urine is notable for protein, ketones, blood, leuk esterase, white blood cells, red blood cells, squamous epithelial cells, and absent bacteria. PERTINENT IMAGING: CT abdomen and pelvis, impression: Right hydronephrosis and hydroureter with calculi in the right ureter measuring 4 mm at the level of L4. There may be an additional distal right ureteral calculi measuring 1 to 2 mm , although bowel loops obscure exact delineation of the ureter. The left kidney shows no hydronephrosis. ASSESSMENT AND PLAN: This is a 37-year-old female with past medical history of gastric bypass 1 year prior to presentation after which her obstructive sleep apnea and gastroesophageal reflux disease have been resolved, now presenting with new- onset nephrolithiasis with associated hydroureter and hydronephrosis, requiring IV pain medication for adequate symptom control. 1. Nephrolithiasis requiring IV Dilaudid. We will prescribe 0.5 mg every 2 hours as needed, 1 dose of Benadryl now. Continue Zofran for management of nausea. 150 cc of normal saline to run continuously and strain urine to evaluate for collection. N.p.o. at 10 p.m. for potential OR with Dr. Alejo at 7 :30 in the morning after discussion with Dr. Cleary, who discussed with Dr. Alejo. The patient received tamsulosin already in the emergency room, will not continue in the morning, she will be n.p.o. 2. Obstructive sleep apnea is cured. No intervention. 3. Anxiety. Continue Xanax p.r.n. 4. DVT prophylaxis, low risk. Ambulate ad micah. [id number]/[facility] #: [id number] [facility]OSPITALThang
[2018-03-25] MEDS: Acetaminophen TAB* 325 MG PO PRN (21:13)
[2018-03-26] MEDS ORDERED: oxyCODONE/Acetamin 5/325 MG* TAB PO PRN (00:29)
[2018-03-26] MEDS: Acetaminophen TAB* 325 MG PO PRN (04:43)
[2018-03-26] MEDS ORDERED: Famotidine IV* 10 MG/ML 2 ML (20 mg) ONE (05:46)
[2018-03-26] MEDS ORDERED: Famotidine IV* 10 MG/ML 2 ML (20 mg) IV ONE (06:00)
[2018-03-26] MEDS ORDERED: PROCHLORPERAZINE INJ 5 MG/ML 2 ML VIAL IV PRN (06:41)
[2018-03-26] MEDS ORDERED: oxyCODONE TAB* 5 MG TAB PO PRN (06:41)
[2018-03-26] MEDS ORDERED: HYDROmorphone INJ* 1 MG/ML CARPUJECT SYRINGE IV PRN (06:41)
[2018-03-26] MEDS ORDERED: Ondansetron INJ* 2 MG/ML VIAL IV PRN (06:41)
[2018-03-26] MEDS ORDERED: Naloxone* 0.4 MG/ML 1 ML VIAL IV PRN (06:41)
[2018-03-26] MEDS ORDERED: Acetaminophen TAB* 325 MG PO PRN (06:41)
[2018-03-26] MEDS ORDERED: Sodium Citrate/Citric Acid* 15 ML UDC ONE (06:51)
[2018-03-26] MEDS ORDERED: Iohexol 180 (CONTRAST) 10 ML SDV IV ONE (06:55)
[2018-03-26] MEDS ORDERED: Gentamicin ADULT (*) 160 MG in NS 0.9% 100 ML* 100 ML IVPB ONE (07:00)
[2018-03-26] MEDS ORDERED: fentaNYL* 50 MCG/ML 2 ML VIAL (100 MCG VIAL) ONE ×2 (07:12→08:24)
[2018-03-26] MEDS ORDERED: Ketorolac INJ* 30 MG/ML 1 ML VIAL ONE (07:18)
[2018-03-26] MEDS: fentaNYL* 50 MCG/ML 2 ML VIAL (100 MCG VIAL) IV PRN ×2 (08:25→08:35)
--- NOTE | 2018-03-26 08:39 | RAD ---
INDICATION: Right ureteral calculus, stent insertion COMPARISONS: CT dated March 25, 2018 TECHNIQUE: Fluoroscopy was provided for a retrograde pyelogram and stent placement. Total fluoroscopy time is: 9 seconds FINDINGS: Spot images Medardo contrast within the renal collecting system which is dilated. A ureteral stent is noted. IMPRESSION: FLUOROSCOPY WAS PROVIDED FOR A RETROGRADE PYELOGRAM AND STENT PLACEMENT CPT II Codes: G9500
[2018-03-26] MEDS ORDERED: Acetaminophen TAB* 325 MG ONE (08:53)
[2018-03-26] MEDS ORDERED: Multivitamins/Minerals TAB PO SCH (09:00)
[2018-03-26 10:09] VITALS: BP 100/67
--- NOTE | 2018-03-26 10:33 | OP ---
CC: Dr. Lalit Barrientos * DATE OF OPERATION: 03/26/18 - ROOM #332 DATE OF : 82 SURGEON: Wilbur Alejo MD ANESTHESIOLOGIST: Dr. Feldman. ANESTHESIA: General. PRE-OP DIAGNOSES: 1. Right hydronephrosis. 2. Calculus right proximal ureter. POST-OP DIAGNOSES: 1. Right hydronephrosis. 2. Calculus right proximal ureter. OPERATIVE PROCEDURE: Cystoscopy, right retrograde pyelogram, right ureteroscopy , right pyeloscopy, fragmentation and extraction of calculus of right proximal ureter and right stent insertion. COMPLICATIONS: None. POSTOPERATIVE CONDITION: Stable. STENT USED: A 6-Georgian stent right ureter. INDICATIONS: Daija Wharton is a 37-year-old lady who has had persistent right flank pain, nausea secondary to obstructing calculus in the right ureter. She was given the option of conservative management but because of the degree and frequency of episodes of pain, she would like to proceed with removal of the calculus. OPERATIVE FINDINGS: Approximately 5 mm sharp-edged calculus impacted at the right ureteropelvic junction with right hydronephrosis. DESCRIPTION OF PROCEDURE: After induction of general anesthesia, patient was placed in dorsal lithotomy position. Sequential compression devices were in place and functioning. 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 There was no evidence of any suspicious bladder lesions noted. Clear efflux was noted from the left orifice. There was initially no efflux noted from the right orifice suggesting a complete obstruction. A 6-Georgian semirigid ureteroscope was introduced in the right ureter. Initial retrograde pyelogram had revealed significantly dilated right proximal collecting system. The ureteroscope was carefully advanced under direct vision. There was no calculus visualized in the distal ureter. The ureteroscope was advanced to the level just below the ureteropelvic junction where there was a 5 to 6 mm sharp-edged calculus with surrounding edema and inflammation. The ureteroscope was carefully advanced above the calculus into the right kidney and pyeloscopy was performed. No additional calculi were noted. Next, using a 3-pronged grasper, the calculus was engaged. The calculus was fragmented and the largest fragment was engaged and retrieved and sent for analysis. The remaining fragments were all less than a millimeter or so in size and the ureteroscope was then withdrawn under direct vision. A 6-Georgian stent was introduced and positioned under fluoroscopy with good proximal and distal positioning obtained. Patient tolerated the procedure satisfactorily and was transferred back to the recovery area in stable condition. [id number]/[facility] #: [id number] GIOVANNA
[2018-03-26] MEDS ORDERED: LR @ 150 MLS/HR IV SCH (11:00)
--- NOTE | 2018-03-26 23:57 | DS ---
CC: Dr. Beltrán * DISCHARGE SUMMARY: DATE OF ADMISSION: DATE OF DISCHARGE: 03/26/18 HISTORY OF PRESENT ILLNESS/HOSPITAL COURSE: This 37-year-old woman presented with right flank pain. She was found to have a right ureteral stone. She was brought to the operating room on 03/26/18 in the morning by Dr. Alejo. A 6- Georgian stent was placed on the right side. Her pain resolved. She did have some right hip pain, which was different than before. I suspect this is due to positioning while under anesthesia in the OR. The patient was discharged on her usual medications and will follow up with Dr. Alejo in a week. FINAL DIAGNOSIS: Right ureteral stone. DISCHARGE MEDICATIONS: 1. Acetaminophen 650 mg every 6 hours p.r.n. 2. Multivitamin with mineral daily. 3. Cyclobenzaprine 5 mg b.i.d. p.r.n. 4. Alprazolam 0.25 mg every 6 hours p.r.n. [id number]/[facility] #: [id number] [facility]ITALTh[facility]
== END 2018-03-26 13:15 | disposition home or self-care (01) ==
LOC: ED 12:52 → SSU 18:42
PROVIDERS: ADMIT Internal Medicine; ATTEND Internal Medicine
PROC: BT1DZZZ Fluoroscopy of Right Kidney, Ureter and Bladder (ICD-10-PCS; principal; 2018-03-25)
PROC: 0TC68ZZ Extirpation of Matter from Right Ureter, Via Natural or Artificial Opening Endoscopic (ICD-10-PCS; 2018-03-25)
PROC: 0T768DZ Dilation of Right Ureter with Intraluminal Device, Via Natural or Artificial Opening Endoscopic (ICD-10-PCS; 2018-03-25)
DX: N13.30 Unspecified hydronephrosis (principal); N20.1 Calculus of ureter; R11.0 Nausea; Z87.891 Personal history of nicotine dependence
CPT/HCPCS: 36415; 74176; 74420; 80053; 81003; 81015; 82365; 83605; 84702; 85025; 85610; 85730; 86140; 87086; 88300; 96361; 96365; 96366; 96375; 99283; A9270-GY; C1876; G0378; J0696; J1170; J1580; J1885; J3010

== ENCOUNTER 2018-08-17 18:38 | Emergency (ER) | payer OTHER ==
[2018-08-17 18:59] VITALS: BP 122/83
--- NOTE | 2018-08-17 19:06 | UC ---
Throat Pain/Nasal Renny HPI - HPI Summary HPI Summary: Pt presents with sore throat x 2 days. Pt denies fevers or chills. Pt states is s/p gastric sleeve 18 months ago. Pt states started having reflux last week. Pt states with sore throat also feels like things"stuck" Pt without difficulty swallowing, but causes discomfort throat. Pt denies difficulty breathing, no chest pain. No fever, chills, rash. No relief with TUMS. no analgesia taken. No strep exposure not immunocompromise. Pt denies abdominal pain. States has been feeling full quickly. Was constipated, but things "moving today" Has appt wit Dr. Mccormick this Tue Pt's medications reviewed this visit - History of Current Complaint Chief Complaint: UCGeneralIllness Stated Complaint: SORE THROAT Time Seen by Provider: 08/17/18 18:57 Hx Obtained From: Patient Hx Last Menstrual Period: 1 year ago - has mirena ?: No Onset/Duration: Gradual Onset Pain Intensity: 3 - Allergies/Home Medications Allergies/Adverse Reactions: Allergies Allergy/AdvReac Type Severity Reaction Status Date / Time aspirin Allergy Swelling Verified 08/17/18 18:59 naproxen Allergy Swelling Verified 08/17/18 18:59 NSAIDS (Non-Steroidal Allergy Swelling Verified 08/17/18 18:59 Anti-Inflamma PMH/Surg Hx/FS Hx/Imm Hx Previously Healthy: Yes Other History Of: Negative For: Anticoagulant Therapy - Surgical History Surgical History: Yes Surgery Procedure, Year, and Place: c-sections x3; bariatric surgery (gastric sleeve) 2017 - Family History Known Family History: Positive: Other - non contributory Negative: Renal Disease - Social History Lives: With Family Alcohol Use: Rare Substance Use Type: None Smoking Status (MU): Current Some Day Smoker Type: Cigarettes Amount Used/How Often: 2-3 cig daily Have You Smoked in the Last Year: No When Did the Patient Quit Smoking/Using Tobacco: at diagnosis Household Exposure Type: Cigarettes - Immunization History Most Recent Influenza Vaccination: 2017 Most Recent Tetanus Shot: 04/13/2015 Most Recent Pneumonia Vaccination: never Review of Systems Constitutional: Negative ENT: Sore Throat All Other Systems Reviewed And Are Negative: Yes Physical Exam - Summary Physical Exam Summary: Vital Signs Reviewed: Yes A+Ox3, no distress, no difficulty with speech, swallowing, secretions Eyes: Conjunctiva Clear, MAR. EOM intact and full ENT: Hearing grossly normal TM x 2 clear, turbinates wnl, mmoist, uvula midline , + erythema, pt with small ulcerative appearing lesions on right > left posterior pharynx. no edema, no asymmetry, no lesions on tongue, hard palate, buccal membrane Neck: Positive: Supple, mild submandibular LA Respiratory: Positive: No respiratory distress, No accessory muscle use + CTA throughout no w/r Cardiovascular: RRR nl s1, s2 no m/r CBT <2 sec abd soft + BS nt/nd no guarding, no distension Musculoskeletal Exam: CARMEN x 4 without difficulty Strength Intact, ROM Intact Neurological: Positive: Alert, + sensation throughout Psychological: Positive: Normal Response To Family Skin: Positive: no rash, no ecchymosis Triage Information Reviewed: Yes Vital Signs: Initial Vital Signs Temp 98.5 F 08/17/18 18:55 Pulse 84 08/17/18 18:55 Resp 16 08/17/18 18:55 BP 122/83 08/17/18 18:55 Pulse Ox 100 08/17/18 18:55 Re-Evaluation - Re-Evaluation First Eval Change: Improved Comment: Pt states sore throat better after cocktail. Pt state continues to feel slight "lump" when swallow. Pt without resp difficult or inabilty to swallow. d/w pt options of Maalox, omeptrazole, symptomatic care vs to ED now. Pt states will go home. strict return precautions discussed. pt comfortable and in agreement with plan Throat Pain/Nasal Course/Dx - Course Assessment/Plan: Pt presents with progressive sore throat x 2-3 days. Pt states has increased reflux last week. Pt has taken tums without relief. On exam, VSS. Pt with small ulcerative appearing lesions posterio oropharynx L>R - suspect viral - strep neg, does not appear thrush. will try Viscous lidocaine and Maalox - Differential Dx/Diagnosis Provider Diagnoses: pharyngitis Discharge - Sign-Out/Discharge Documenting (check all that apply): Patient Departure All imaging exams completed and their final reports reviewed: No Studies - Discharge Plan Condition: Stable Disposition: HOME Prescriptions: Lidocaine 2% VISCOUS* [Xylocaine 2% Viscous*] 15 ml SWISH SPIT Q4H PRN #1 btl PRN Reason: Sore Throat Omeprazole CAP* [Prilosec CAP* 20 MG] 20 mg PO DAILY #14 cap. Patient Education Materials: Pharyngitis (ED) Referrals: Simon Beltrán MD [Primary Care Provider] - Papo Mccormick MD [Medical Doctor] - (Monday as scheduled ) Additional Instructions: - Stay well hydrated. Drink plenty of non-alcoholic, non-caffinated beverags - gargle and spit with warm salt water 2-3 times a day - okay to take medication as prescribed here for throat discomfort - It is recommended you resume omeprazole daily - eat small, frequent meals - Okay to take Maalox of Mylanta every 4 hours - keep your appointment as schedule with Dr. Mccormick on Monday - if you develop difficulty with swallowing your secretions, difficulty breathing, uncontrolled pain or any other concerns it is recommended you go to the emergency department immediately for further evaluation - Billing Disposition and Condition Condition: STABLE Disposition: Home
[2018-08-17] MEDS ORDERED: Lidocaine 2% VISCOUS* 15 ML UDC PO ONE (19:34)
[2018-08-17] MEDS ORDERED: Al Hydrox/Mg Hydrox/Simet LIQ* 30 ML UDC PO ONE (19:34)
== END 2018-08-17 20:26 | disposition home or self-care (01) ==
LOC: UCEAST 18:38
DX: J02.9 Acute pharyngitis, unspecified (principal); F17.210 Nicotine dependence, cigarettes, uncomplicated; J39.2 Other diseases of pharynx; Z88.6 Allergy status to analgesic agent; Z88.8 Allergy status to other drugs, medicaments and biological substances
CPT/HCPCS: 87651; 99212; A9270-GY; G0463